=== PATIENT | female | born 2000 | race Asian ===

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

== ENCOUNTER 2019-04-01 00:28 | Emergency (ER) | payer OTHER ==
[~2019-04-01] VITALS: Ht 157.5 cm; Wt 99.8 kg
[2019-04-01 03:08] VITALS: BP 139/71; TEMP 98.8
== END 2019-04-01 03:09 | disposition home or self-care (01) ==
LOC: ED 00:28
DX: J06.9 Acute upper respiratory infection, unspecified (principal)
CPT/HCPCS: 87502; 87651; 99283

== ENCOUNTER 2019-04-18 12:23 | Emergency (ER) | payer OTHER ==
[~2019-04-18] VITALS: Ht 157.5 cm; Wt 97.5 kg
[2019-04-18 12:41] VITALS: TEMP 98.5
[2019-04-18 13:46] VITALS: BP 119/81
== END 2019-04-18 13:50 | disposition home or self-care (01) ==
LOC: ED 12:23
DX: L73.2 Hidradenitis suppurativa (principal)
CPT/HCPCS: 96372; 99283; J0696; J1885

== ENCOUNTER 2020-02-28 09:27 | Emergency (ER) | payer OTHER ==
[~2020-02-28] VITALS: Ht 157.5 cm; Wt 99.3 kg
[2020-02-28 09:36] VITALS: TEMP 98.4
[2020-02-28 10:11] LABS: PLATELET COUNT 534 K/uL (152-353)
[2020-02-28 10:22] LABS: POTASSIUM 3.7 mmol/L (3.6-5.2)
[2020-02-28 11:12] VITALS: BP 138/75
== END 2020-02-28 11:12 | disposition home or self-care (01) ==
LOC: ED 09:27
PROVIDERS: Hospitalist
DX: R10.84 Generalized abdominal pain (principal); N83.299 Other ovarian cyst, unspecified side; N70.11 Chronic salpingitis
CPT/HCPCS: 36415; 80053; 81000; 81025; 83690; 85027; 85610; 85730; 96360; 96375; 99284; J1885; J2405

== ENCOUNTER 2020-09-15 06:50 | Emergency (ER) | payer OTHER ==
[~2020-09-15] VITALS: Ht 157.5 cm; Wt 96.6 kg
[2020-09-15 06:56] VITALS: BP 154/89; TEMP 98.4
== END 2020-09-15 07:39 | disposition home or self-care (01) ==
LOC: ED 06:50
DX: L02.31 Cutaneous abscess of buttock (principal)
CPT/HCPCS: 96372; 99282; J0696

== ENCOUNTER 2022-08-29 18:45 | Emergency (ER) | payer OTHER ==
[~2022-08-29] VITALS: Ht 157.5 cm; Wt 109.3 kg
[2022-08-29 20:23] VITALS: BP 111/67; TEMP 97.3
== END 2022-08-29 20:23 | disposition home or self-care (01) ==
LOC: ED 18:45
DX: L25.9 Unspecified contact dermatitis, unspecified cause (principal); T78.40XA Allergy, unspecified, initial encounter
CPT/HCPCS: 96372; 99283; J1200; J2930